=== PATIENT | female | born 1985 | race Caucasian/White ===

== ENCOUNTER 2017-01-06 12:06 | Emergency (ER) | payer OTHER ==
[~2017-01-06 12:06] MED LIST: ADDERALL15 MG PO; Adderall XR PO; BUPRENORPHIN-N1 EACH SL; BUSPAR10 MG PO; CLONAZEPAM0.5 MG PO; DEPAKOTE500 MG PO; DIVALPROEX SOD500 MG PO; Depakote PO; ESCITALOPRAM OX10 MG PO; HYDROCODON-ACE1 EAC7 PO; KlonoPIN PO; LEXAPRO10 MG PO; Lexapro PO; MOBIC15 MG PO; Motrin PO; NAPROSYN500 MG PO; Percocet 5/325,Endoc PO; SUBOXONE 8 MG-1 EAC2 SL; TESSALON PERLE100 MG PO; TOPAMAX25 MG PO; Xanax PO; ZOFRAN ODT4 MG PO
== END 2017-01-06 13:00 | disposition home or self-care (01) ==
LOC: EME 12:06
DX: Z53.21 Procedure and treatment not carried out due to patient leaving prior to being seen by health care provider (principal)

== ENCOUNTER 2017-01-11 00:26 | Emergency (ER) | payer OTHER ==
[~2017-01-11] VITALS: Ht 175.3 cm; Wt 69.0 kg
[2017-01-11 01:21] LABS: ADD MIUA? YES; BILIRUBIN NEGATIVE; BLOOD SMALL; COLOR AMBER ((YELLOW)); GLUCOSE (STRIP) NEGATIVE; KETONES NEGATIVE; LEUKOCYTES TRACE; NITRITE POSITIVE; PROTEIN (STRIP) NEGATIVE; SPECIFIC GRAVITY 1.015 (1.000-1.030)
[2017-01-11 01:27] LABS: BACTERIA 1+ /HPF; EPITHELIAL CELLS 2+ /HPF; MUCUS TRACE /LPF; UCUL ADDED? NO; WHITE BLOOD CELLS 15-20 /HPF (0-5)
[2017-01-11 02:14] LABS: HEMATOCRIT 38.7 % (36.0-46.0); MCH 30.5 PG (29.0-34.0); MCHC 34.6 G/DL (30.0-36.0); MCV 88.2 FL (83-99); MEAN PLAT.VOLUME 9.6 uM^3 (9.5-12.4); PLATELET COUNT 193 K/uL (156-360); RBC DIS.WIDTH-CV 12.6 % (11.8-14.6); RED BLOOD COUNT 4.39 M/uL (3.80-5.20); WHITE BLOOD COUNT 8.8 K/uL (4.1-10.2)
[2017-01-11 02:24] LABS: CHLORIDE 107 mEq/L (99-109); POTASSIUM 3.9 mEq/L (3.7-5.4); SODIUM 139 mEq/L (136-147)
[2017-01-11 02:26] LABS: GLUCOSE 100 mg/dL (70-99)
[2017-01-11 02:27] LABS: ANION GAP 7 MEQ/L (2-14)
[2017-01-11 02:28] LABS: TOTAL BILIRUBIN 0.4 mg/dL (0.0-1.0)
[2017-01-11 02:30] LABS: ALKALINE PHOSPHATASE 60 IU/L (3-129); GFR ESTIMATE (CALCULATED) > 59 mL/min/
[2017-01-11 02:31] LABS: UREA NITROGEN (BUN) 9 mg/dL (9-23)
[2017-01-11 02:40] LABS: QUANTITATIVE HCG < 4.0 MIU/ML
[2017-01-11] MEDS ORDERED: KEFLEX500 MG PO (03:39)
[2017-01-11 04:40] VITALS: BP 151/91
== END 2017-01-11 05:35 | disposition home or self-care (01) ==
LOC: EME 00:26
DX: N39.0 Urinary tract infection, site not specified (principal); Z87.442 Personal history of urinary calculi; Z88.2 Allergy status to sulfonamides; F17.200 Nicotine dependence, unspecified, uncomplicated; Z90.710 Acquired absence of both cervix and uterus
CPT/HCPCS: 80053; 81003; 84702; 85027; 87086; 99281; 99285; J0696; J2405; J3010; J7030; J7050

== ENCOUNTER 2018-01-05 21:10 | Emergency (ER) | payer OTHER ==
[~2018-01-05] VITALS: Ht 172.7 cm; Wt 66.4 kg
[~2018-01-05 21:10] MED LIST changes: +KEFLEX500 MG PO
[2018-01-05 21:31] LABS: HEMATOCRIT 35.4 % (36.0-46.0); HEMOGLOBIN 12.5 G/DL (11.9-15.5); MCH 31.9 PG (29.0-34.0); MCHC 35.3 G/DL (30.0-36.0); MCV 90.3 FL (83-99); PLATELET COUNT 161 K/uL (156-360); RBC DIS.WIDTH-CV 12.4 % (11.8-14.6); RBC DIS.WIDTH-SD 40.7 % (39-53); RED BLOOD COUNT 3.92 M/uL (3.80-5.20); WHITE BLOOD COUNT 9.5 K/uL (4.1-10.2)
[2018-01-05 21:54] LABS: CHLORIDE 109 MEQ/L (99-109); POTASSIUM 3.7 MEQ/L (3.7-5.4); SODIUM 143 MEQ/L (136-147)
[2018-01-05 21:59] LABS: CREATININE 0.5 MG/DL (0.6-1.3); GFR ESTIMATE (CALCULATED) > 59 mL/min/; GLUCOSE 89 mg/dL (70-99); UREA NITROGEN (BUN) 9 mg/dL (9-23)
[2018-01-05] MEDS ORDERED: AUGMENTIN875 MG PO (23:10)
[2018-01-05] MEDS ORDERED: TESSALON200 MG PO (23:10)
[2018-01-05 23:44] VITALS: BP 153/78
== END 2018-01-05 23:46 | disposition home or self-care (01) ==
LOC: EME 21:10
DX: J40 Bronchitis, not specified as acute or chronic (principal); R00.0 Tachycardia, unspecified; Z88.2 Allergy status to sulfonamides; Z90.710 Acquired absence of both cervix and uterus; F17.200 Nicotine dependence, unspecified, uncomplicated
CPT/HCPCS: 71046; 80048; 85027; 85379; 94640; 99281; 99284